=== PATIENT | male | born 1990 | race Caucasian/White ===

== ENCOUNTER 2021-08-25 07:19 | Outpatient (CLI) | payer BC | END 2021-08-25 07:20 | disposition home or self-care (01) | LOC: CSHULT 07:19 | PROVIDERS: ATTEND Nurse Practitioner Family | DX: R74.01 Elevation of levels of liver transaminase levels (principal); R76.8 Other specified abnormal immunological findings in serum; R93.421 Abnormal radiologic findings on diagnostic imaging of right kidney | CPT/HCPCS: 76700 ==